=== PATIENT | male | born 1960 | race Caucasian/White ===

== ENCOUNTER 2016-12-13 14:51 | Emergency (ER) | payer SELFPAY ==
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
[2016-12-13] MEDS ORDERED: Fluorescein Opthalmic Strip ONE (16:15)
[2016-12-13] MEDS ORDERED: Proparacaine 0.5% Opth 15 ML BOT ONE (16:15)
[2016-12-13] MEDS ORDERED: diphenhydrAMINE HCl 50 MG/ML 1 ML VIAL ONE (16:18)
[2016-12-13] MEDS ORDERED: Ketorolac Tromethamine 30 MG/ML VIAL ONE (16:19)
[2016-12-13] MEDS ORDERED: Metoclopramide HCl 10 MG/2 ML VIAL ONE (16:19)
== END 2016-12-13 17:56 | disposition home or self-care (01) ==
LOC: ERS 14:51
DX: R51 Headache (principal); I10 Essential (primary) hypertension; J45.909 Unspecified asthma, uncomplicated; F41.9 Anxiety disorder, unspecified; Z87.891 Personal history of nicotine dependence; Z79.899 Other long term (current) drug therapy
CPT/HCPCS: 70450; 96365; 96375; J1200; J1885; J2765

== ENCOUNTER 2018-08-02 14:22 | Outpatient (CLI) | payer OTHER ==
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
== END 2018-08-02 14:23 | disposition home or self-care (01) ==
LOC: BICRAD 14:22
PROVIDERS: ATTEND Family Medicine
DX: M79.671 Pain in right foot (principal)

== ENCOUNTER 2019-11-25 19:31 | Emergency (ER) | payer SELFPAY ==
[~2019-11-25 19:31] MED LIST: Iopamidol-370 76% 500 ML 1 ML ONE
--- NOTE | 2019-11-25 20:04 | RAD ---
XR Chest 1 View Portable History: Trauma Comparison: Radiograph 2016 Findings: Lungs are clear. No pneumothorax. No effusion. Cardiac silhouette and mediastinal contours are within normal limits. No acute displaced rib fracture. Impression: No acute intrathoracic abnormality.
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
[2019-11-25] MEDS ORDERED: Fentanyl 100 MCG/2 ML VIAL ONE (20:16)
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
[2019-11-25] MEDS ORDERED: Dexamethasone 4 mg/ml Vial ONE (21:01)
[2019-11-25] MEDS ORDERED: Ketorolac Tromethamine 30 MG/ML VIAL ONE (21:01)
== END 2019-11-25 21:56 | disposition home or self-care (01) ==
LOC: ERS 19:31
DX: S80.01XA Contusion of right knee, initial encounter (principal); M54.5 Low back pain; M54.2 Cervicalgia; J45.909 Unspecified asthma, uncomplicated; I10 Essential (primary) hypertension; F41.9 Anxiety disorder, unspecified; Z87.891 Personal history of nicotine dependence; V49.9XXA Car occupant (driver) (passenger) injured in unspecified traffic accident, initial encounter
CPT/HCPCS: 70450; 71045; 71260; 72125; 74177; 96374; 96375; G0390; J1100; J1885; J3010

== ENCOUNTER 2019-12-27 13:54 | Outpatient (CLI) | payer OTHER ==
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
== END 2019-12-27 13:55 | disposition home or self-care (01) ==
LOC: BICMRI 13:54
PROVIDERS: ATTEND Neurological Surgery
DX: M51.26 Other intervertebral disc displacement, lumbar region (principal); M54.2 Cervicalgia; M47.816 Spondylosis without myelopathy or radiculopathy, lumbar region; M48.061 Spinal stenosis, lumbar region without neurogenic claudication; M47.812 Spondylosis without myelopathy or radiculopathy, cervical region
CPT/HCPCS: 72141; 72148

== ENCOUNTER 2020-02-11 13:22 | Outpatient (CLI) | payer OTHER ==
[~2020-02-11 13:22] MED LIST changes: -Iopamidol-370 76% 500 ML 1 ML ONE; +Magnevist 469MG/ML 20 ML VIAL ONE
--- NOTE | 2020-02-11 15:19 | MRI ---
MR OF THE PELVIS WITH AND WITHOUT CONTRAST INDICATION: Malignant tumor of prostate COMPARISON: None TECHNIQUE: Multiplanar, multisequence MR images were obtained of the pelvis with and without IV contr ast. 18 cc of MultiHance was utilized for the examination. The examination was reviewed on a separate [employer] 3-D workstation for multiplanar metric evaluation. FINDINGS: Prostate size: The prostate measured 4.0 x 3.6 x 3.5cm. 25.5 cc. Peripheral zone: There is a 1.7 x 1.3 cm T2 hypointense, hypointense ADC lesion within the right pros tatic base (medial and lateral), right mid gland (medial and lateral and right lateral apex. This lesion demonstrates abnormal dynamic contrast enhancement. Central zone: No suspicious signal abnormality or focal lesion. Neural vasculature: With the size of the lesion and abutment to the posterior lateral aspect of the r ight prostatic capsule, neurovascular invasion is suspected from the lesion in the right prostate gland. Regional lymphadenopathy: None Dynamic contrast enhancement: Abnormal as above Osseous structures: No suspicious osseous lesion is identified. Additional findings: There are numerous scattered colonic diverticula involving the colon. No free fl uid is evident.. IMPRESSION: 1. PIRADS 5- Very High (clinically significant cancer is highly likely to be present.) 2. There is a large 1.7 cm T2 hypointense, ADC hypointense lesion with abnormal dynamic contrast enha ncement involving the right prostate gland peripheral zone as above. This lesion is highly suspicious for clinically significant cancer. With the size of the lesion and its abutment to the pos terior lateral aspect of the right prostatic capsule, neurovascular invasion is suspected.
== END 2020-02-11 13:23 | disposition home or self-care (01) ==
LOC: TBSIIMAG 13:22
PROVIDERS: ATTEND Urology
DX: C61 Malignant neoplasm of prostate (principal)
CPT/HCPCS: 72197; 82565; A9579

== ENCOUNTER 2021-03-30 13:12 | Outpatient (CLI) | payer BC | END 2021-03-30 13:13 | disposition home or self-care (01) | LOC: TBSIIMAG 13:12 | PROVIDERS: ATTEND Specialist | DX: M47.22 Other spondylosis with radiculopathy, cervical region (principal); M48.02 Spinal stenosis, cervical region; M47.23 Other spondylosis with radiculopathy, cervicothoracic region | CPT/HCPCS: 72141 ==

== ENCOUNTER 2021-11-04 09:39 | Outpatient (CLI) | payer BC | END 2021-11-04 09:40 | disposition home or self-care (01) | LOC: BICRAD 09:39 | PROVIDERS: ATTEND Family Medicine | DX: R07.9 Chest pain, unspecified (principal) | CPT/HCPCS: 71046 ==

== ENCOUNTER 2022-03-10 08:53 | Outpatient (CLI) | payer BC ==
[~2022-03-10 08:53] MED LIST changes: +Iopamidol-370 76% 500 ML 1 ML ONE; -Magnevist 469MG/ML 20 ML VIAL ONE
== END 2022-03-10 08:54 | disposition home or self-care (01) ==
LOC: CT 08:53
PROVIDERS: ATTEND Radiology Radiation Oncology
DX: C61 Malignant neoplasm of prostate (principal)
CPT/HCPCS: 74177; 78306; A9503